=== PATIENT | female | born 2005 | race Caucasian/White ===

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

== ENCOUNTER 2023-07-14 16:44 | Outpatient (CLI) | payer OTHER, SELFPAY | END 2023-07-14 16:45 | disposition home or self-care (01) | LOC: NFLDREF 07-16 03:33 | PROVIDERS: Visit Provider Nurse Practitioner Family | DX: R30.0 Dysuria (principal); N39.0 Urinary tract infection, site not specified; N30.01 Acute cystitis with hematuria | CPT/HCPCS: 87086; 87186 ==

== ENCOUNTER 2024-05-30 17:03 | Outpatient (CLI) | payer OTHER, SELFPAY | END 2024-05-30 17:04 | disposition home or self-care (01) | LOC: NFLDREF 05-31 09:39 | PROVIDERS: Visit Provider Nurse Practitioner Family | DX: N30.00 Acute cystitis without hematuria (principal); B96.20 Unspecified Escherichia coli [E. coli] as the cause of diseases classified elsewhere | CPT/HCPCS: 87086; 87186 ==

== ENCOUNTER 2025-01-31 12:34 | Outpatient (CLI) | payer OTHER, SELFPAY | END 2025-01-31 12:35 | disposition home or self-care (01) | LOC: NFLDREF 02-04 18:28 | DX: N30.01 Acute cystitis with hematuria (principal); B96.20 Unspecified Escherichia coli [E. coli] as the cause of diseases classified elsewhere | CPT/HCPCS: 87086 ==